=== PATIENT | male | born 1990 | race Caucasian/White ===

== ENCOUNTER 2016-08-22 11:55 | Emergency (ER) | payer BC ==
[~2016-08-22] VITALS: Ht 170.2 cm; Wt 66.7 kg
[2016-08-22 12:05] VITALS: TEMP 36.8; Ht 170.2 cm; Wt 66.7 kg
[2016-08-22] MEDS ORDERED: LISD70CA PO (12:18)
[2016-08-22 13:09] LABS: URINE APPEARANCE CLOUDY (CLEAR); URINE BILIRUBIN NEG (NEG); URINE COLOR YELLOW; URINE EPITHELIAL CELL AUTO 0-5 /lpf (0-5); URINE NITRITE NEG (NEG); URINE PH >= 9.0 (4.5-7.5); URINE SPECIFIC GRAVITY 1.025 (1.000-1.030); UROBILINOGEN NEG (NEG); ZZUR CULT IF INDIC CLEAN CATCH NO
[2016-08-22] MEDS ORDERED: CEFTRIAXONE SOD 350MG/ML 1 GM VIAL IM STA (13:13)
[2016-08-22] MEDS ORDERED: AZITHROMYCIN 250 MG TAB PO STA (13:13)
[2016-08-22 13:21] LABS: MANUAL MICROSCOPIC REQUIRED? NO; REVIEW REQ? NO; SULFASALICYLIC ACID NEG (NEG)
--- NOTE | 2016-08-22 13:24 | DIAGNOSTIC IMAGING REPORT ---
KUB CLINICAL HISTORY: Penile pain, hematuria. COMPARISON STUDY: None. FINDINGS: The bowel gas pattern is normal. A 3 mm right pelvic calcification favors a phlebolith. There is mild leftward curvature of the lumbar spine. IMPRESSION: 1. No evidence for a bowel obstruction. 2. 3 mm right pelvic calcification. A phlebolith is favored although a distal right ureteral calculus could appear similar. Electronically signed by: Noam Ambrosio M.D. 08/22/2016 1:23 PM Dictated Date/Time: 08/22/2016 1:18 PM
--- NOTE | 2016-08-22 13:57 | EMERGENCY ROOM VISIT NOTE ---
History First contact with patient: 12:38 Chief Complaint: PENIS PAIN Stated Complaint: SORE GROIN Nursing Triage Summary: triage note: pt reports penis pain x 3. "a sharp pain woke me up and it was some what erect." pt reports continued penis pain. pt denies any injury. History of Present Illness The patient is a 25 year old male who presents to the Emergency Room with complaints of penile pain. The patient states that he has had pain in his penis for the last 3 days. He rates his discomfort a 5/10. He states that he woke in the morning and noticed a sharp pain. The sharp pain has been intermittent. He also reports dysuria. He has noticed some green discoloration to his urine. He was seen at urgent care and had a urinalysis that was negative. He is awaiting results of a urine gonorrhea and chlamydia culture. The patient denies any testicular pain or swelling. He denies any penile discharge. He denies any abdominal pain, nausea or vomiting. He denies any abdominal pain. The patient denies any injury. He states the last time he he masturbated was 2 weeks ago. He states that the last time he had intercourse was several weeks ago. He denies any history of STD. Review of Systems A 10 system review of systems was completed with positives and pertinent negatives listed in the HPI. Past Medical/Surgical History Medical Problems: (1) ADHD Social History Smoking Status: Current Some Day Smoker Housing Status: lives with family Current/Historical Medications Scheduled Lisdexamfetamine Dimesylate (Vyvanse), 70 MG PO DAILY Allergies Coded Allergies: Morphine (Unverified Allergy, Unknown, ., 08/22/16) Physical Exam Vital Signs Date Time Temp Pulse Resp B/P (MAP) Pulse Ox O2 Delivery O2 Flow Rate FiO2 08/22/16 15:21 106 16 131/70 98 08/22/16 13:57 84 16 142/77 08/22/16 12:05 36.8 119 20 137/80 98 Room Air Physical Exam VITALS: Vitals are noted on the nurse's note and reviewed by myself. Vital signs stable. GENERAL: This is a 25-year-old male, in no acute distress, nondiaphoretic, well- developed well-nourished. SKIN: The skin was without rashes, erythema, edema, or bruising. There is no tenting of the skin. Capillary reflex less than 2 seconds. HEAD: Normocephalic atraumatic. EARS: External auditory canals clear, tympanic membranes pearly ferguson without erythema or effusion bilaterally. EYES: Pupils equal round and reactive to light and accommodation. Conjunctivae without injection, sclerae without icterus. Extraocular movements intact. NOSE: Patent, turbinates without inflammation or discharge. No sinus tenderness. MOUTH: Mucous membranes moist. Tonsils are not enlarged. Pharynx without erythema or exudate. Uvula midline. Airway patent. Tongue does not deviate. NECK: Supple without nuchal rigidity. No lymphadenopathy. No thyromegaly. Cervical spine is nontender. No JVD. HEART: Regular rate and rhythm without murmurs gallops or rubs. LUNGS: Clear to auscultation bilaterally without wheezes, rales or rhonchi. No dullness to percussion. No retractions or accessory muscle use. ABDOMEN: Positive bowel sounds x 4. Soft, nontender, without masses or organomegaly. Ulloa sign negative. : The external genitalia is normal in appearance. There are no rashes. There is no penile discharge. There is no testicular pain, swelling or mass. MUSCULOSKELETAL: No muscle atrophy, erythema, or edema noted. Full range of motion in all extremities. Normal gait. Strength 5/5 throughout. NEURO: Patient was alert and oriented to person place and time. No focal neurological deficits. Medical Decision & Procedures ER Provider Diagnostic Interpretation: KUB CLINICAL HISTORY: Penile pain, hematuria. COMPARISON STUDY: None. FINDINGS: The bowel gas pattern is normal. A 3 mm right pelvic calcification favors a phlebolith. There is mild leftward curvature of the lumbar spine. IMPRESSION: 1. No evidence for a bowel obstruction. 2. 3 mm right pelvic calcification. A phlebolith is favored although a distal right ureteral calculus could appear similar. [~ rep ct add3]] RENAL ULTRASOUND HISTORY: Pain penile pain, hematuria COMPARISON: None. FINDINGS: Right kidney: Maximum dimension 10.7 cm. No evidence for hydronephrosis. Normal corticomedullary differentiation and cortical thickness. Left kidney: Maximum dimension 10.8 cm. No evidence for hydronephrosis. Normal corticomedullary differentiation and cortical thickness. Bladder: No bladder wall thickening. The bilateral ureteral jets were identified. IMPRESSION: Normal renal ultrasound. Laboratory Results Test 08/22/16 12:45 Urine Color YELLOW Urine Appearance CLOUDY (CLEAR) Urine pH >= 9.0 (4.5-7.5) Urine Specific [place] 1.025 (1.000-1.030) Urine Protein NEG (NEG) Urine Glucose (UA) NEG (NEG) Urine Ketones TRACE (NEG) Urine Occult Blood NEG (NEG) Urine Nitrite NEG (NEG) Urine Bilirubin NEG (NEG) Urine Urobilinogen NEG (NEG) Urine Leukocyte Esterase NEG (NEG) Urine WBC (Auto) 1-5 /hpf (0-5) Urine RBC (Auto) 0-4 /hpf (0-4) Urine Hyaline Casts (Auto) 1-5 /lpf (0-5) Urine Epithelial Cells (Auto) 0-5 /lpf (0-5) Urine Bacteria (Auto) NEG (NEG) Medications Administered Medications (Trade) Dose Ordered Sig/Jennie Route Start Time Stop Time Status Last Admin Dose Admin Azithromycin (Zithromax Tab) 1,000 mg NOW STAT PO 08/22/16 13:13 08/22/16 13:14 DC 08/22/16 13:56 1,000 MG Ceftriaxone Sodium (Rocephin Im) 250 mg NOW STAT IM 08/22/16 13:13 08/22/16 13:14 DC 08/22/16 13:56 250 MG ED Course The patient presents to the emergency department with complaints of penile pain. The symptoms have been present for 3 days. He also has dysuria and describes a greenish discoloration in his urine. He does not have any testicular pain or testicular swelling. He does not have any rash. He has not had any back pain, abdominal pain or fever. Gonorrhea chlamydia urine test is pending per outpatient studies. Urinalysis today was negative for hematuria or obvious urine infection. KUB reveals what appears to be a phlebolith but no convincing kidney stone. Renal ultrasound was unremarkable. The patient presents with dysuria and greenish discoloration in his urine as well as intermittent sharp pain in the penis. This may represent a 60 transmitted infection. The patient was concerned for a penile fracture. Clinically I do not suspect a fracture. The patient did not have any blunt trauma. He did not have any injury at all. The patient's father stated that he had an injury years ago and almost had testicular torsion. The patient has no tenderness to palpation of the testicles and no complaints of testicular pain or swelling. The patient was given 250 mg IM Rocephin and 1 g oral Zithromax empirically to cover for gonorrhea and chlamydia He should return to the ER with any worsening symptoms. Otherwise, he should follow up with urology next week. The case was discussed with Dr. Martinez who agrees with the assessment and treatment plan. Medical Decision The differential diagnosis includes urinary tract infection, sexual transmitted infection, testicular torsion, testicular mass, kidney stone, among others Impression Primary Impression: Dysuria Additional Impression: Penile pain Departure Information Dispostion Home / Self-Care Condition GOOD Referrals No Doctor, Assigned (PCP) Jaret Hoyt MD, Urology Patient Instructions Dysuria, ED STD Male Treated, [facility] Additional Instructions Return with any worsening pain, testicular pain or swelling, fevers Contact urology on Thursday if symptoms are not improving Problem Qualifiers
--- NOTE | 2016-08-22 14:53 | DIAGNOSTIC IMAGING REPORT ---
RENAL ULTRASOUND HISTORY: Pain penile pain, hematuria COMPARISON: None. FINDINGS: Right kidney: Maximum dimension 10.7 cm. No evidence for hydronephrosis. Normal corticomedullary differentiation and cortical thickness. Left kidney: Maximum dimension 10.8 cm. No evidence for hydronephrosis. Normal corticomedullary differentiation and cortical thickness. Bladder: No bladder wall thickening. The bilateral ureteral jets were identified. IMPRESSION: Normal renal ultrasound. Electronically signed by: Junior Lai M.D. 08/22/2016 2:51 PM Dictated Date/Time: 08/22/2016 2:50 PM
[2016-08-22 15:21] VITALS: BP 131/70; PULSE 106; O2SAT 98
== END 2016-08-22 15:23 | disposition home or self-care (01) ==
LOC: C.EDB 11:57 → C.EDD 15:23
DX: R30.0 Dysuria (principal); N48.89 Other specified disorders of penis; F90.9 Attention-deficit hyperactivity disorder, unspecified type; F17.210 Nicotine dependence, cigarettes, uncomplicated; Z79.899 Other long term (current) drug therapy

== ENCOUNTER 2016-12-20 14:20 | Emergency (ER) | payer SELFPAY ==
[~2016-12-20] VITALS: Ht 170.2 cm; Wt 69.8 kg
[~2016-12-20 14:20] MED LIST: LISD70CA PO
[2016-12-20 14:25] VITALS: TEMP 36.7; Ht 170.2 cm; Wt 69.8 kg
[2016-12-20 15:30] LABS: MANUAL MICROSCOPIC REQUIRED? NO; REVIEW REQ? NO; URINE APPEARANCE CLEAR (CLEAR); URINE BILIRUBIN NEG (NEG); URINE COLOR YELLOW; URINE NITRITE NEG (NEG); URINE PH 7.5 (4.5-7.5); URINE SPECIFIC GRAVITY 1.012 (1.000-1.030); UROBILINOGEN NEG (NEG)
--- NOTE | 2016-12-20 16:16 | DIAGNOSTIC IMAGING REPORT ---
ULTRASOUND TESTES AND SCROTUM CLINICAL HISTORY: Scrotal pain. Recent diagnosis of chlamydia. COMPARISON STUDY: No priors. TECHNIQUE: Real-time, grayscale, and color Doppler sonography of the testes and scrotum is performed. Images are reviewed in the transverse and longitudinal planes. FINDINGS: The testes are normal in size and homogeneous in echotexture. The right testis measures 4.4 x 2.2 x 3.1 cm and the left testis measures 4.3 x 2.1 x 3.1 cm. No intratesticular mass is seen. Testicular blood flow is normal and symmetric. Normal Doppler waveforms are identified in both testes. The epididymal heads are normal in appearance. The right epididymal head measures 1.1 cm in length and the left epididymal head measures 0.9 cm in length. A 3 mm varicocele is noted on the left. No right-sided varicocele is seen and no hydrocele is identified. IMPRESSION: 1. No acute sonographic abnormality is seen involving the testes or scrotum. 2. A small left-sided varicocele is incidentally noted. Electronically signed by: Mikhail Atkinson M.D. 12/20/2016 4:14 PM Dictated Date/Time: 12/20/2016 4:13 PM
[2016-12-20 16:17] VITALS: BP 139/78; PULSE 82; O2SAT 100
[2016-12-20] MEDS ORDERED: DOXY100C PO (16:24)
--- NOTE | 2016-12-20 17:17 | EMERGENCY ROOM VISIT NOTE ---
History First contact with patient: 14:41 Chief Complaint: TESTICULAR PAIN Stated Complaint: PAIN IN GENITALS RECENTLY TREATED FOR CHLAMYDIA Nursing Triage Summary: Patient reports recently treated for chlymidia. States here today because he is having pain in "genital" area History of Present Illness The patient is a 26 year old white male who presents to the Emergency Room with complaints of genital pain that has been present for a few days. He was diagnosed with chlamydia approximately 3 weeks ago and was treated with Zithromax and Rocephin. He states symptoms improved but then recurred. He has had some burning type sensation with urination. He has not been sexually active since being diagnosed with chlamydia. He complains of pain at the base of his penis as well as on the undersurface of his scrotum. He denies any change in his urine stream. No hematuria. No discharge from the penis. He previously had green discharge with the previous chlamydia diagnosis, but this has not recurred. No fevers or chills. No other abdominal pain. Review of Systems REVIEW OF SYSTEM: HEENT: No dizziness, visual problems, hearing loss, or tinnitus. There is no difficulty swallowing and no oral lesions are present. PULMONARY: No cough, shortness of breath, sputum production or hemoptysis. CARDIOVASCULAR: No chest pain, palpitations, shortness of breath or peripheral edema. GASTROINTESTINAL: No diarrhea, constipation, nausea, vomiting, or abdominal pain. GENITOURINARY: No frequency or nocturia. He has had some dysuria and urgency. NEUROLOGIC: No weakness, muscle tenderness, epilepsy or history of neurological problems. MUSCULOSKELETAL: No history of joint tenderness/swelling. No history of arthritis or arthralgias. SKIN: No rashes or lesions. ENDOCRINE: No history of diabetes, thyroid disorders, or abnormal hair growth. Past Medical/Surgical History Medical Problems: (1) ADHD Recent chlamydia diagnosis. Previous surgeries: Nasal reconstruction, tonsillectomy with adenoidectomy Family History Significant for diabetes, cancer, and kidney disease. Parents are living. Social History Smoking Status: Current Some Day Smoker Smokeless Tobacco Use: No Alcohol Use: occasionally Drug Use: none Marital Status: single Housing Status: lives with family Occupation Status: unemployed Current/Historical Medications Scheduled Doxycycline Hyclate (Vibramycin), 100 MG PO BID Lisdexamfetamine Dimesylate (Vyvanse), 70 MG PO DAILY Physical Exam Vital Signs Date Time Temp Pulse Resp B/P (MAP) Pulse Ox O2 Delivery O2 Flow Rate FiO2 12/20/16 16:17 82 18 139/78 100 12/20/16 14:25 36.7 76 20 141/83 99 Room Air Physical Exam Gen.: Well-developed, well-nourished, young white male, in no acute distress. Laying on a bed. Alert and oriented. Skin:Warm and dry with good turgor. No rashes or lesions. No ecchymosis or erythema. The patient is not diaphoretic. No abrasions. Lymphatics: Mild enlargement and tenderness of the left inguinal nodes. No findings on the right. Genitalia: Normal-appearing external genitalia. Mild discomfort with palpation at the base of the penis. No pain with palpation over the shaft. No drainage. No pain with palpation of the testes. Normal size and shape. He does have discomfort with palpation across the undersurface of the scrotum. Musculoskeletal: Gross motor function of the lower extremities is intact and unremarkable. He is able to perform a straight leg raise bilaterally. Abdomen: Abdomen was inspected and palpated. Soft, nontender to palpation. No hepato-splenomegaly. No masses noted. No rebound. Medical Decision & Procedures ER Provider Diagnostic Interpretation: Scrotal ultrasound obtained today was read by radiology as negative for torsion. No epididymitis. Mild varicocele present. Laboratory Results Test 12/20/16 15:00 Urine Color YELLOW Urine Appearance CLEAR (CLEAR) Urine pH 7.5 (4.5-7.5) Urine Specific [place] 1.012 (1.000-1.030) Urine Protein NEG (NEG) Urine Glucose (UA) NEG (NEG) Urine Ketones NEG (NEG) Urine Occult Blood NEG (NEG) Urine Nitrite NEG (NEG) Urine Bilirubin NEG (NEG) Urine Urobilinogen NEG (NEG) Urine Leukocyte Esterase NEG (NEG) UA and GC/chlamydia swab were obtained. UA is unremarkable. ED Course Patient was educated regarding today's findings. Conservative care measures were discussed. UA and penile swab were obtained. Ultrasound was also obtained. Ultrasound and UA are unremarkable. He has a history of chlamydia and currently has enlarged left-sided inguinal lymph nodes. I will start him on additional doxycycline 100 mg twice a day at this time. This may be modified once his culture returns in 3-4 days. Tylenol and Motrin every 6 hours as needed for mild discomfort. Follow-up with his PCP in 10 days for reassessment. Return to the ED for any acute worsening of symptoms. Avoid sexual intercourse until his cultures are known. Medical Decision Possibility of testicular torsion, STD, varicocele, epididymitis, UTI, kidney stone, and follicular infection were considered among others. Medication Reconcilliation Current Medication List: was personally reviewed by me Blood Pressure Screening Patient's blood pressure: Normal blood pressure Impression Primary Impression: Testicular/scrotal pain Departure Information Prescriptions Doxycycline Hyclate (VIBRAMYCIN) 100 Mg Cap 100 MG PO BID for 7 Days, #14 CAP Prov: Osmany Mujica,P.A. 12/20/16 Referrals Junior Klein M.D. (PCP) Patient Instructions My [facility]
[2016-12-24 00:44] LABS: CHLAMYDIA TRACH RNA*** DETECTED (NOT DETECTED); GC (NEIS GONORRHOEAE)RNA** NOT DETECTED (NOT DETECTED)
== END 2016-12-20 16:44 | disposition home or self-care (01) ==
LOC: C.EDB 14:22 → C.EDD 16:44
DX: N50.819 Testicular pain, unspecified (principal); N50.82 Scrotal pain; F90.9 Attention-deficit hyperactivity disorder, unspecified type; F17.200 Nicotine dependence, unspecified, uncomplicated; Z83.3 Family history of diabetes mellitus; Z86.19 Personal history of other infectious and parasitic diseases

== ENCOUNTER 2017-02-17 17:32 | Emergency (ER) | payer SELFPAY ==
[~2017-02-17] VITALS: Ht 170.2 cm; Wt 75.6 kg
[2017-02-17 17:41] VITALS: Ht 170.2 cm; Wt 75.6 kg
--- NOTE | 2017-02-17 18:15 | EMERGENCY ROOM VISIT NOTE ---
History Report prepared by Yamil: Mehnaz Roca Under the Supervision of: Dr. Jey Stoddard D.O. First contact with patient: 17:48 Chief Complaint: ABDOMINAL PAIN Stated Complaint: DISCOMFORT IN R LEG/HIP AND TESTICLES Nursing Triage Summary: pt ambulted to triage with difficulty reports RLQ abdominal pain with R testicular pain . pt denies swelling or urinary sx .pt reports falling 1.5 wks ago and hurting R hip or leg it has not gotten any better History of Present Illness The patient is a 26 year old male who presents to the Emergency Room with complaints of constant leg pain beginning last week. The patient states that last week he was having pain in his right leg and right hip that radiated into his right testicle. He reports that he is having some mild RLQ pain. The patient complains of intermittent dark urine. He denies any urinary symptoms, testicular swelling, hernias, back pain, hematuria, rash, leg pain, and leg swelling. The patient states that his pain causes it to be difficult to sleep. The patient states that the girl he was dating previously had multiple partners and told him that she had a bacterial infection that he should have treated. Source of History: patient Onset: last week Position: leg (right) Timing: constant Modifying Factors (Worsening): other (sleeping) Associated Symptoms: + abdominal pain, No back pain, No urinary symptoms, No rash Note: He denies any testicular swelling, hernias, hematuria, leg pain, and leg swelling. Pt complains of testicular pain and hip pain. Review of Systems See HPI for pertinent positives & negatives. A total of 10 systems reviewed and were otherwise negative. Past Medical & Surgical Medical Problems: (1) ADHD Family History No pertinent family history stated. Social History Smoking Status: Never Smoker Alcohol Use: occasionally Drug Use: none Marital Status: single Housing Status: lives with family Occupation Status: unemployed Current/Historical Medications Scheduled Doxycycline (Monohydrate) (Doxycycline Monohydrate), 100 MG PO BID Lisdexamfetamine Dimesylate (Vyvanse), 70 MG PO DAILY Allergies Coded Allergies: Morphine (Unverified Allergy, Unknown, ., 12/20/16) Physical Exam Vital Signs Date Time Temp Pulse Resp B/P (MAP) Pulse Ox O2 Delivery O2 Flow Rate FiO2 02/17/17 19:47 37.0 94 18 157/84 99 Room Air 02/17/17 19:04 37.1 96 18 145/86 98 Room Air 02/17/17 17:41 37.0 104 20 140/66 98 Room Air Physical Exam GENERAL: Patient is awake, alert, and in no acute distress. Patient is resting comfortably and showing no signs of anxiety EYES: The conjunctivae are clear. The pupils are round and reactive. EARS, NOSE, MOUTH AND THROAT: The nose is without any evidence of any deformity. Mucous membranes are moist tongue is midline NECK: The neck is nontender and supple. RESPIRATORY: Normal respiratory effort is noted there is no evidence of wheezing rhonchi or rales CARDIOVASCULAR: Regular rate and rhythm noted there no murmurs rubs or gallops normal S1 normal S2 GASTROINTESTINAL: The abdomen is soft. Bowel sounds are present in all quadrants. Abdomen is nontender MUSCULOSKELETAL/EXTREMITIES: There is no evidence of gross deformity full range of motion is noted in the hips and shoulders SKIN: There is no obvious evidence of any rash. There are no petechiae, pallor or cyanosis noted. NEUROLOGIC: Patient is awake alert and oriented x3 strength is symmetric patellar reflexes are 2+ bilaterally : Testicles distended and nontender bilaterally, there was tenderness in the right inguinal region, no hernia was appreciated. Circumcised male genetalia was noted. There no vesicles noted but a small ulceration on the right distal shaft. Medical Decision & Procedures ER Provider Diagnostic Interpretation: Radiology results as stated below per my review and radiologist interpretation: R PELVIS/UNILATERAL HIP 2-3VIEWS FINDINGS: The sacroiliac joints and symphysis pubis are intact. No fracture or suspicious lesion is identified on this examination. Joint spaces are preserved. There is minimal osteophytosis of the right hip. There is no evidence for avascular necrosis. IMPRESSION: 1. No acute fracture within the pelvis or hips. 2. Preserved right hip joint space with mild osteophytosis. Electronically signed by: Noam Ambrosio M.D. 02/17/2017 6:36 PM Dictated Date/Time: 02/17/2017 6:35 PM SCROTAL ULTRASOUND FINDINGS: The right testis measures 4.4 x 2.7 x 2.4 cm and the left measures 4.4 x 2.9 x 2.3 cm. Color flow within each testis is identified. There is no testicular mass. There is no evidence for epididymitis. There is a small left varicocele. IMPRESSION: 1. Normal sonographic appearance of the testes. No evidence of testicular torsion. 2. Small left varicocele. Electronically signed by: Noam Ambrosio M.D. 02/17/2017 7:02 PM Dictated Date/Time: 02/17/2017 7:01 PM Laboratory Results Test 02/17/17 18:05 02/17/17 18:30 Urine Color YELLOW Urine Appearance TURBID (CLEAR) Urine pH 7.0 (4.5-7.5) Urine Specific [place] 1.024 (1.000-1.030) Urine Protein NEG (NEG) Urine Glucose (UA) NEG (NEG) Urine Ketones NEG (NEG) Urine Occult Blood NEG (NEG) Urine Nitrite NEG (NEG) Urine Bilirubin NEG (NEG) Urine Urobilinogen NEG (NEG) Urine Leukocyte Esterase NEG (NEG) Urine WBC (Auto) 1-5 /hpf (0-5) Urine RBC (Auto) 0-4 /hpf (0-4) Urine Hyaline Casts (Auto) 1-5 /lpf (0-5) Urine Epithelial Cells (Auto) 10-20 /lpf (0-5) Urine Bacteria (Auto) NEG (NEG) Laboratory results per my review. ED Course 1747: The patient was evaluated in room C5. A complete history and physical examination were performed. 1946: Upon reevaluation, the patient is doing well. I discussed the results and treatment plan with the patient. He verbalized agreement of the treatment plan. The patient was discharged home. Medical Decision Differential diagnosis: Etiologies such as torsion, mass, infection, hernia, hydrocele, epididymitis, trauma, intra-abdominal process, as well as others were entertained. Nursing notes reviewed. The patient is a 26-year-old male who presented to the emergency department for evaluation of right testicular pain. The patient also complained of right hip pain. He had some adenopathy noted in the right groin and some fullness. I do feel this could be consistent with a skin infection on the penis. Swabs were obtained for STD testing. The patient was started on antibiotic for presumed epididymitis which was noted clinically but his ultrasound did not show any acute disease. I discussed the patient's laboratory and radiographic studies with him. He was encouraged to continue all medications as prescribed and follow -up with his primary care physician as soon as possible. He was also encouraged to avoid any sexual contact until the testing was returned and he was cleared by his primary care physician. Otherwise he was encouraged to return to the emergency department immediately if symptoms change worsen or the need arises. Medication Reconcilliation Current Medication List: was personally reviewed by me Blood Pressure Screening Patient's blood pressure: Elevated blood pressure Blood pressure disposition: Elevated BP felt to be situational Impression Primary Impression: Epididymitis Scribe Attestation The scribe's documentation has been prepared under my direction and personally reviewed by me in its entirety. I confirm that the note above accurately reflects all work, treatment, procedures, and medical decision making performed by me. Departure Information Dispostion Home / Self-Care Prescriptions Doxycycline (Monohydrate) (DOXYCYCLINE MONOHYDRATE) 100 Mg Tab 100 MG PO BID, #20 TAB Prov: Jey Stoddard, DO 02/17/17 Referrals Junior Klein M.D. (PCP) Forms HOME CARE DOCUMENTATION FORM, IMPORTANT VISIT INFORMATION Patient Instructions Epididymitis Orchitis, My [facility] Additional Instructions Continue to use Motrin and Tylenol as directed for pain. Avoid sexual contact until you are cleared by your Family doctor.
--- NOTE | 2017-02-17 18:37 | DIAGNOSTIC IMAGING REPORT ---
R PELVIS/UNILATERAL HIP 2-3VIEWS CLINICAL HISTORY: Right hip pain. COMPARISON: KUB August 22, 2016. FINDINGS: The sacroiliac joints and symphysis pubis are intact. No fracture or suspicious lesion is identified on this examination. Joint spaces are preserved. There is minimal osteophytosis of the right hip. There is no evidence for avascular necrosis. IMPRESSION: 1. No acute fracture within the pelvis or hips. 2. Preserved right hip joint space with mild osteophytosis. Electronically signed by: oNam Ambrosio M.D. 02/17/2017 6:36 PM Dictated Date/Time: 02/17/2017 6:35 PM
[2017-02-17 18:49] LABS: URINE APPEARANCE TURBID (CLEAR); URINE BILIRUBIN NEG (NEG); URINE COLOR YELLOW; URINE NITRITE NEG (NEG); URINE SPECIFIC GRAVITY 1.024 (1.000-1.030); UROBILINOGEN NEG (NEG)
[2017-02-17 18:51] LABS: MANUAL MICROSCOPIC REQUIRED? NO; REVIEW REQ? NO
--- NOTE | 2017-02-17 19:04 | DIAGNOSTIC IMAGING REPORT ---
SCROTAL ULTRASOUND CLINICAL HISTORY: Right testicle pain. COMPARISON STUDY: Scrotal ultrasound December 20, 2016. TECHNIQUE: Grayscale and color and duplex Doppler sonography of the scrotum was performed. FINDINGS: The right testis measures 4.4 x 2.7 x 2.4 cm and the left measures 4.4 x 2.9 x 2.3 cm. Color flow within each testis is identified. There is no testicular mass. There is no evidence for epididymitis. There is a small left varicocele. IMPRESSION: 1. Normal sonographic appearance of the testes. No evidence of testicular torsion. 2. Small left varicocele. Electronically signed by: Noam Ambrosio M.D. 02/17/2017 7:02 PM Dictated Date/Time: 02/17/2017 7:01 PM
[2017-02-17] MEDS ORDERED: DOXY100T17 PO (19:42)
[2017-02-17 19:47] VITALS: BP 157/84; PULSE 94; TEMP 37; O2SAT 99
[2017-02-20 01:23] LABS: CHLAMYDIA TRACH RNA*** NOT DETECTED (NOT DETECTED); GC (NEIS GONORRHOEAE)RNA** NOT DETECTED (NOT DETECTED)
[2017-02-20 12:52] LABS: HERPES SIMPLEX CULT SOURCE GENITAL-PENIS; HERPES SIMPLEX VIRUS CULT NOT ISOLATED (NOT ISOLATED)
== END 2017-02-17 19:55 | disposition home or self-care (01) ==
LOC: C.EDB 17:35 → C.EDC 19:55
DX: N45.1 Epididymitis (principal); R03.0 Elevated blood-pressure reading, without diagnosis of hypertension; Z20.2 Contact with and (suspected) exposure to infections with a predominantly sexual mode of transmission

== ENCOUNTER 2017-03-20 16:44 | Emergency (ER) | payer OTHER ==
[~2017-03-20] VITALS: Ht 200.7 cm; Wt 75.5 kg
[~2017-03-20 16:44] MED LIST changes: +DOXY100T17 PO
[2017-03-20 16:48] VITALS: TEMP 37; Ht 200.7 cm; Wt 75.5 kg
[2017-03-20] MEDS ORDERED: MULT-513 PO (17:02)
[2017-03-20] MEDS ORDERED: IBUP-1277 PO (17:02)
--- NOTE | 2017-03-20 18:13 | DIAGNOSTIC IMAGING REPORT ---
TESTICULAR ULTRASOUND HISTORY: testicular pain, groin pain ?lymphadenopathy COMPARISON: Testicular ultrasound 02/17/2017. FINDINGS: Right testis: 4.2 x 2.1 x 2.9 cm. There are no intratesticular masses. Normal color flow. No hydrocele. The epididymis is unremarkable. Left testis: 4.4 x 2.7 x 2.1 cm. There are no intratesticular masses. Normal color flow. No hydrocele. The epididymis is unremarkable. Small left varicocele, unchanged. No sonographic abnormality within the left perineum at the patient's area of interest. No lymphadenopathy identified. IMPRESSION: Normal bilateral testes. Small left varicocele, unchanged. Electronically signed by: Marck Lozano M.D. 03/20/2017 6:12 PM Dictated Date/Time: 03/20/2017 6:10 PM
--- NOTE | 2017-03-20 19:14 | EMERGENCY ROOM VISIT NOTE ---
History First contact with patient: 17:01 Chief Complaint: OTHER COMPLAINT Stated Complaint: STIFFNESS/PAIN AROUND TESTICLES EARILER HAD DISCHA History of Present Illness The patient is a 26 year old male who presents to the Emergency Room with complaints of "reoccurring symptoms." The patient reports that he has had testicular pain for the past few days. He denies any pain today. He reports some penile discharge this morning. He states it was clear and white. The patient was seen here about one month ago and diagnosed with epididymitis. He took his antibiotics and was told to follow-up with a specialist, but did not. He denies any chance of STI, and states that he has not been sexually active since he was last treated here. He denies any fevers/chills. Review of Systems A complete 10 point review of systems was reviewed with the patient with pertinent positives and negatives as per history of present illness. All else were negative. Past Medical/Surgical History Medical Problems: (1) ADHD Social History Smoking Status: Current Every Day Smoker Alcohol Use: occasionally Drug Use: none Marital Status: single Housing Status: lives with family Occupation Status: unemployed Current/Historical Medications Scheduled Ibuprofen (Advil), 400 MG PO PRN UD Lisdexamfetamine Dimesylate (Vyvanse), 70 MG PO DAILY Multivitamins/Minerals (Mvi With Minerals), 1 TAB PO 3XWK Physical Exam Vital Signs Date Time Temp Pulse Resp B/P (MAP) Pulse Ox O2 Delivery O2 Flow Rate FiO2 03/20/17 19:24 88 16 121/71 97 03/20/17 18:58 88 16 121/71 97 Room Air 03/20/17 16:48 37.0 102 16 150/87 97 Room Air Physical Exam VITALS: Vitals are noted on the nurse's note and reviewed by myself. Vital signs stable. GENERAL: This is a 26-year-old male, in no acute distress, nondiaphoretic, well- developed well-nourished. SKIN: The skin was without rashes. HEART: Regular rate and rhythm without murmurs gallops or rubs. LUNGS: Clear to auscultation bilaterally without wheezes, rales or rhonchi. ABDOMEN: No tenderness to palpation. : External genitalia unremarkable. No tenderness of either testicles. No palpable masses. No erythema or swelling. NEURO: Patient was alert and oriented to person place and time. Medical Decision & Procedures Laboratory Results Test 03/20/17 17:10 Urine Color YELLOW Urine Appearance CLEAR (CLEAR) Urine pH 5.5 (4.5-7.5) Urine Specific [place] 1.024 (1.000-1.030) Urine Protein NEG (NEG) Urine Glucose (UA) NEG (NEG) Urine Ketones NEG (NEG) Urine Occult Blood NEG (NEG) Urine Nitrite NEG (NEG) Urine Bilirubin NEG (NEG) Urine Urobilinogen NEG (NEG) Urine Leukocyte Esterase NEG (NEG) Date/Time Source Procedure Growth Status 03/20/17 18:32 Penis Swab Trichomonas Preparation - Final Complete Medical Decision Differential diagnosis includes urinary tract infection, gonorrhea, chlamydia, Trichomonas, among others. The patient was evaluated as above. He presents today complaining of nonspecific groin pain and discharge earlier today, although there is no discharge on exam at this time. He has been seen here multiple times for similar symptoms and does have a history of STI's. Patient initially refused any genital swabs for gonorrhea/chlamydia, although did then agree to a swab for Trichomonas. This was found to be negative. The urine was sent for culture and for gonorrhea/chlamydia testing. Ultrasound was negative. At this time I would recommend waiting on the cultures before starting any treatment. I did give the patient information for urology referral and advised that he call them to arrange follow-up. He should return here if any symptoms worsen. He verbalized understanding of my assessment and treatment plan and was discharged home in good condition. Medication Reconcilliation Current Medication List: was personally reviewed by me Blood Pressure Screening Patient's blood pressure: Normal blood pressure Impression Primary Impression: Groin pain Departure Information Dispostion Home / Self-Care Condition GOOD Referrals Junior Klein M.D. (PCP) Art Stone M.D. Patient Instructions My [facility] Additional Instructions Contact urology to schedule a follow-up appointment. Call their office on Thursday. Return to the emergency department with any worsening or new/concerning symptoms. Problem Qualifiers Primary Impression: Groin pain Laterality: unspecified laterality Qualified Codes: R10.30 - Lower abdominal pain, unspecified
[2017-03-20 19:24] VITALS: BP 121/71; PULSE 88; O2SAT 97
== END 2017-03-20 19:25 | disposition home or self-care (01) ==
LOC: C.EDB 16:46 → C.EDD 19:25
DX: R10.30 Lower abdominal pain, unspecified (principal); F90.9 Attention-deficit hyperactivity disorder, unspecified type; F17.200 Nicotine dependence, unspecified, uncomplicated; Z79.899 Other long term (current) drug therapy

== ENCOUNTER 2017-05-30 12:12 | Emergency (ER) | payer OTHER, BC ==
[~2017-05-30] VITALS: Ht 170.2 cm; Wt 79.0 kg
[~2017-05-30 12:12] MED LIST changes: -DOXY100T17 PO; +IBUP-1277 PO; +MULT-513 PO
[2017-05-30 12:17] VITALS: TEMP 36.9; Ht 170.2 cm; Wt 79.0 kg
[2017-05-30] MEDS ORDERED: AZITTAB PO (12:55)
--- NOTE | 2017-05-30 12:56 | EMERGENCY ROOM VISIT NOTE ---
ED Visit Note First contact with patient: 12:29 CHIEF COMPLAINT: Cough and sneezing 2 weeks HPI: Patient is a 26-year-old male who presents emergency department for evaluation of upper respiratory symptoms 2 weeks. He states his symptoms started more like allergies, with sneezing and congestion, he then developed a sore throat, sinus and nasal pressure, cough and reports that he is blowing yellow/green mucus from his nose. He has not had a fever. He has been taking TheraFlu intermittently for his symptoms. He denies headache. No nausea or vomiting. No neck pain. Denies any difficulty breathing. Denies any rash. REVIEW OF SYSTEMS: Review of systems as per HPI. All other systems reviewed were negative. 10 systems reviewed. PMH: Electronic medical records are reviewed and summarized as above/below. See Problem List. SOCIAL HISTORY: Patient lives at home with his parents. Occasional smoker, social EtOH. PHYSICAL EXAM: Vital Signs: Reviewed Nurse's notes. MENTAL STATUS: Alert and cooperative. Nontoxic appearing. HEAD: Atraumatic, without temporal or scalp tenderness. EYES: PERRL, EOMI, no discharge or injection. EARS: Tympanic membranes intact, not inflamed, have normal contour. External canals clear. NOSE: Nares patent, turbinates edematous and boggy with thick rhinorrhea. MOUTH: Mucous membranes moist, no lesions, tongue and gums appear normal. THROAT: No pharyngeal injection, exudates, or tonsillar hypertrophy. Airway is patent. NECK: Supple, nontender, no lymphadenopathy. HEART: Regular rate and rhythm without murmurs, ectopy, gallops, or rubs. LUNGS: Clear to auscultation and breath sounds equal, no wheezes, rales, or rhonchi. SKIN: Normal. NEUROLOGICAL: Sensory and motor functions grossly intact. Normal gait. ED COURSE: The patient was seen and assessed as above. He has developed a sinus infection after having upper respiratory symptoms for about 2 weeks. He has used nasal steroids in the past. He was encouraged to use [id number] medications and was placed on a Z-Marbella. Differential diagnoses include allergic rhinitis, sinusitis, bronchitis, otitis media, strep versus viral pharyngitis, among others. Medication reconciliation: I attest that I have personally reviewed the patient' s current medication list. Blood pressure screening : Patient was found to have normal blood pressure on screening and does not require follow-up. Problem List Medical Problems: (1) ADHD Status: Chronic (2) Groin pain Status: Resolved (3) Testicular/scrotal pain Status: Resolved Surgical Problems: (1) History of nasal surgery Status: Resolved (2) History of tonsillectomy and adenoidectomy Status: Resolved Current/Historical Medications Scheduled Azithromycin (Zithromax Z-[place]), 0 PO UD Ibuprofen (Advil), 400 MG PO PRN UD Lisdexamfetamine Dimesylate (Vyvanse), 70 MG PO DAILY Allergies Coded Allergies: Morphine (Unverified Allergy, Unknown, ., 05/30/17) Vital Signs Date Time Temp Pulse Resp B/P (MAP) Pulse Ox O2 Delivery O2 Flow Rate FiO2 05/30/17 13:08 97 18 126/82 98 05/30/17 12:17 36.9 109 16 149/86 98 Departure Information Impression Primary Impression: Sinusitis Prescriptions Azithromycin (ZITHROMAX Z-MARBELLA) 250 Mg Tab 0 PO UD, #1 PKT 2 TABS DAY 1, THEN 1 TAB DAILY FOR 4 DAYS Prov: Kristin Ortiz PA 05/30/17 Referrals Junior Klein M.D. (PCP) Patient Instructions [facility] Additional Instructions Azithromycin(Zithromax) 250mg: Take one a day for 4 additional days. All antibiotics can cause diarrhea. If this occurs and you feel worse or it does not resolve in 1- 2 days follow up with your doctor or return to the Emergency Department as this could be signs of serious underlying problems. Any medication can cause an allergic reaction, stop the pills immediately and return to the ER for rash, hives, breathing difficulties, or swelling. Acetaminophen(Tylenol) may be used for fever or pain. Use 1000mg every six hours as needed. Avoid using more than 3000mg in a 24 hour period. (AND/OR) Ibuprofen(Motrin, Advil) may be used for fever or pain. Use 600mg every six hours as needed. Take with food. Avoid using more than 2400mg in a 24 hour period. Do not use 2400mg per day for more than three consecutive days without physician direction. Prolonged inappropriate use can lead to stomach upset or ulcers. Nasal steroid spray per package instructions. Pseudoephedrine(Sudaphed): 30-60mg every 6 hours as needed for nasal congestion. Do not take this with other stimulant products or supplements. Guaifenesin (Mucinex) : Take 1200 mg every 12 hours as needed for nasal/chest congestion, to help thin secretions. Continue current medications. Return to the ER for severe headache, neck stiffness, chest pain, difficulty breathing, fevers, vomiting, worsening of your condition, or as needed. Follow up with your primary physician this week for a recheck of your current condition.
[2017-05-30 13:08] VITALS: BP 126/82; PULSE 97; O2SAT 98
== END 2017-05-30 13:09 | disposition home or self-care (01) ==
LOC: C.EDB 12:14 → C.EDD 13:09
DX: J32.9 Chronic sinusitis, unspecified (principal); F90.9 Attention-deficit hyperactivity disorder, unspecified type; Z79.899 Other long term (current) drug therapy; Z88.5 Allergy status to narcotic agent